=== PATIENT | male | born 1980 | race African-American/Black ===

== ENCOUNTER 2022-08-17 06:12 | Emergency (ER) | payer MEDICAID ==
[~2022-08-17] VITALS: Ht 182.9 cm; Wt 73.0 kg
[2022-08-17 09:17] VITALS: BP 105/74
[2022-08-17 09:23] LABS: BASOPHILS % 0.5 % (0.0-2.0); HEMATOCRIT. 42.7 % (42.0-52.0); HEMOGLOBIN. 14.3 g/dL (14.0-18.0); LYMPHOCYTES % 15.4 % (20.0-50.0); MEAN PLATELET VOLUME 7.6 fl (7.4-10.4); MONOCYTES % 4.8 % (2.0-8.0); NEUTROPHILS % 77.3 % (40.0-76.0); PLATELET 283 x1000/uL (130-400); RED BLOOD CELL COUNT 5.09 mill/uL (4.7-6.1)
[2022-08-17 09:32] LABS: CHLORIDE 111 mEq/L (98-107)
[2022-08-17 09:45] LABS: ETHANOL BLOOD 253 mg/dL
== END 2022-08-17 12:35 | disposition home or self-care (01) ==
LOC: EDBD 06:12 → ER 06:12
DX: F10.129 Alcohol abuse with intoxication, unspecified (principal); Y90.8 Blood alcohol level of 240 mg/100 ml or more; R41.82 Altered mental status, unspecified
CPT/HCPCS: 36415; 80053; 80307; 80320; 80329; 85025; 99283; Z7610; G0480